=== PATIENT | female | born 1980 | race Caucasian/White ===

== ENCOUNTER 2021-06-08 01:20 | Emergency (ER) | payer OTHER ==
[~2021-06-08] VITALS: Ht 167.6 cm; Wt 81.6 kg
--- NOTE | 2021-06-08 01:25 | NUR ---
PT DIANA ALS. TAKEN TO BED 5
[2021-06-08 01:30] VITALS: BP 136/87
--- NOTE | 2021-06-08 01:30 | NUR ---
Dr. Higgins examining patient.
[2021-06-08] MEDS ORDERED: OLANZapine 5 MG ODT SL ONE (01:35)
--- NOTE | 2021-06-08 01:35 | NUR ---
PT REFUSING GOWN AND EKG. PT STATES "I JUST WANT TO LEAVE." DR. CRAIG AND BEDSIDE DISCUSSING RISK AND BENEFITS OF LEAVING.
--- NOTE | 2021-06-08 01:45 | NUR ---
Patient does not wish to proceed with medical care recommended by DR. CRAIG. Patient given information related to possible complications, up to and including , which could occur as a result of leaving hospital at this time. Patient verbalizes understanding of risks involved leaving against medical advice. Patient has signed AMA form.
== END 2021-06-08 01:45 | disposition left against medical advice (07) ==
LOC: MED 01:20
DX: R07.9 Chest pain, unspecified (principal)
CPT/HCPCS: 99283

== ENCOUNTER 2021-08-21 11:02 | Emergency (ER) | payer OTHER ==
[~2021-08-21] VITALS: Ht 167.6 cm; Wt 86.2 kg
--- NOTE | 2021-08-21 11:02 | NUR ---
PT DIANA AMBULATED TO ER BED 8.
[2021-08-21 11:10] VITALS: BP 127/89
--- NOTE | 2021-08-21 11:16 | NUR ---
DR. FREEMAN AT PT BEDSIDE FOR FURTHER EVALUATION.
--- NOTE | 2021-08-21 11:20 | NUR ---
41 Y/O HOMELESS FEMALE BIBA FROM [facility]IDE [facility] [employer] C/O N/V X2DAYS. PT STATES "I JUST WANT A SANDWICH AND I AM COOL". DENIES FEVER/CHILLS. DENIES PAIN. DENIES SOB. DENIES CHEST PAIN. DENIES PMH NKA
[2021-08-21] MEDS: ONDANSETRON 4 MG ODT PO ONE (11:42)
[2021-08-21] MEDS ORDERED: ONDA-188 SL (11:46)
[2021-08-21 12:08] VITALS: BP 126/84
--- NOTE | 2021-08-21 12:10 | NUR ---
Patient discharged with v/s stable. Written and verbal after care instructions given for nausea/ vomiting and explained. Patient verbalized understanding. Ambulatory with steady gait. All questions addressed prior to discharge. Advised to follow up with PMD.
--- NOTE | 2021-08-21 12:12 | NUR ---
The patient's care was reviewed and supervised by Mel Truong RN.
== END 2021-08-21 12:02 | disposition home or self-care (01) ==
LOC: MED 11:02
DX: R11.2 Nausea with vomiting, unspecified (principal); R10.13 Epigastric pain; Z59.00 Homelessness unspecified
CPT/HCPCS: 99283; Q0162

== ENCOUNTER 2022-02-28 02:35 | Emergency (ER) | payer OTHER ==
[~2022-02-28] VITALS: Ht 170.2 cm; Wt 86.2 kg
[~2022-02-28 02:35] MED LIST: ONDA-188 SL
[2022-02-28 02:37] VITALS: BP 141/89
--- NOTE | 2022-02-28 02:37 | NUR ---
PT OFFLOADED TO LOBBY.
--- NOTE | 2022-02-28 04:30 | NUR ---
PT BIBA BLS ER BED 11
--- NOTE | 2022-02-28 04:58 | NUR ---
Patient given food and fluids. Patient able to eat and drink fluids well. Patient resting comfortably in bed, no c/o pain or s/s of distress.
[2022-02-28 05:45] VITALS: BP 121/82
--- NOTE | 2022-02-28 06:08 | NUR ---
Patient discharged with v/s stable. Written and verbal after care instructions given and explained. Patient verbalized understanding. Ambulatory with steady gait. All questions addressed prior to discharge. Advised to follow up with PMD.
== END 2022-02-28 05:45 | disposition home or self-care (01) ==
LOC: MED 02:35
DX: R06.02 Shortness of breath (principal); F17.200 Nicotine dependence, unspecified, uncomplicated; Z72.820 Sleep deprivation; Z59.00 Homelessness unspecified; Z79.899 Other long term (current) drug therapy
CPT/HCPCS: 71045; 93005; 99283

== ENCOUNTER 2022-05-12 00:45 | Emergency (ER) | payer OTHER ==
[~2022-05-12] VITALS: Ht 167.6 cm; Wt 86.2 kg
[2022-05-12 00:48] VITALS: BP 126/78
--- NOTE | 2022-05-12 00:49 | NUR ---
PT OFFLOADED TO LOBBY. O2 SAT 97%. RR EVEN AND UNLABORED. DOESNT APPEAR TO BE IN DISTRESS AT THIS TIME.
--- NOTE | 2022-05-12 03:00 | NUR ---
Patient ambulated with strong gait to Chair B. Patient on monitor, A/Ox4, chest rise and fall symmetrical, no s/s of distress.
--- NOTE | 2022-05-12 03:53 | NUR ---
PT AMBULATED WITH STRONG GAIT TO ER BED 03.
--- NOTE | 2022-05-12 03:54 | NUR ---
Patient ambulated with strong gait to room 3. Patient on monitor, A/Ox4, chest rise and fall symmetrical, no s/s of distress.
--- NOTE | 2022-05-12 04:30 | NUR ---
PT ALERT AND ABLE TO MAKE NEEDS KNOWN. HOMELESS. PT C/O SOB. DENIES CHEST PAIN. AMBULATORY. NO OTHER COMPPLAINTS AT THIS TIME.
== END 2022-05-12 05:25 | disposition home or self-care (01) ==
LOC: MED 00:45
DX: R06.02 Shortness of breath (principal); Z79.899 Other long term (current) drug therapy
CPT/HCPCS: 71045; 81025; 93005; 99283; Q0092

== ENCOUNTER 2022-05-15 23:24 | Emergency (ER) | payer OTHER ==
[~2022-05-15] VITALS: Ht 167.6 cm; Wt 86.2 kg
[2022-05-15 23:27] VITALS: BP 148/66
--- NOTE | 2022-05-15 23:30 | NUR ---
PT OFF-LOADED TO LOBBY.
--- NOTE | 2022-05-16 02:27 | NUR ---
PT TO CHAIR B
--- NOTE | 2022-05-16 02:40 | NUR ---
DR. CORNELL WITH PT FOR EXAM
[2022-05-16] MEDS ORDERED: KETOROLAC 60 MG/2 ML VIAL IM ONE (02:45)
--- NOTE | 2022-05-16 02:58 | NUR ---
PT REFUSED MEDICATION, TORADOL DRAWN UP AND WASTERED.PT STATED "I CHANGED MY MIND I DONT WANT IT".
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
[2022-05-16] MEDS ORDERED: IBUP-2213 PO (03:07)
[2022-05-16 03:10] VITALS: BP 148/66
--- NOTE | 2022-05-16 03:10 | NUR ---
LEFT WITHOUT PAPER WORK Patient discharged with v/s stable. Written and verbal after care instructions given and explained. Patient alert, oriented and verbalized understanding of instructions. Ambulatory with steady gait. All questions addressed prior to discharge. ID band removed. Patient advised to follow up with PMD. Rx of IBUPROFEN given. Patient educated on indication of medication including possible reaction and side effects. Opportunity to ask questions provided and answered.
== END 2022-05-16 03:10 | disposition home or self-care (01) ==
LOC: MED 23:24
DX: R07.89 Other chest pain (principal)
CPT/HCPCS: 93005; 99283; J1885

== ENCOUNTER 2022-07-08 00:25 | Emergency (ER) | payer OTHER ==
[~2022-07-08] VITALS: Ht 162.6 cm; Wt 81.6 kg
[~2022-07-08 00:25] MED LIST changes: +IBUP-2213 PO
[2022-07-08 00:29] VITALS: BP 138/76
--- NOTE | 2022-07-08 00:30 | NUR ---
PT TO LOBBY
--- NOTE | 2022-07-08 00:32 | NUR ---
pt DIANA coming from the streets states she is homeless. [facility] run #[id number]. Pt c/o chest pain 5/10 non radiating but is constant that started an hour ago. Pt states she also feels faint. Deneis n/v. No sob. VSS. A&Ox4. Ambulatory with steady gait. Pupils PERRLA. Pt not vaccinated for covid. Has hx of bipolar. NKA. Pt waiting in lobby until a bed becomes available.
--- NOTE | 2022-07-08 00:52 | NUR ---
PT CALLED BY LAB WITH NO ANSWER IN LOBBY AND OUTSIDE. DR. RIVERA MADE AWARE
--- NOTE | 2022-07-08 01:07 | NUR ---
PT CALLED BY RADIOLOGY FOR XR WITH NO ANSWER IN LOBBY OR OUTSIDE. PT LWBS
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
[2022-07-08 01:58] LABS: BASOPHILS # (AUTO) 0.1 K/uL (0.00-0.22); BASOPHILS % (AUTO) 0.8 % (0.0-2.0); EOSINOPHILS # (AUTO) 0.2 K/uL (0-0.4); EOSINOPHILS % (AUTO) 2.8 % (0.0-4.0); HEMATOCRIT 37.6 % (36-48); HEMOGLOBIN 12.6 g/dL (12.0-16.0); LYMPHOCYTES # (AUTO) 3.1 K/uL (2.5-16.5); LYMPHOCYTES % (AUTO) 38.7 % (20.5-51.1); MEAN CORPUSCULAR HEMOGLOBIN 30 pg (27-31); MEAN CORPUSCULAR HGB CONC 33 g/dL (33-37); MEAN CORPUSCULAR VOLUME 90.3 fL (80-94); MONOCYTES # (AUTO) 0.7 K/uL (0.8-1.0); MONOCYTES % (AUTO) 8.8 % (1.7-9.3); NEUTROPHILS # (AUTO) 3.9 K/uL (1.8-7.7); NEUTROPHILS % (AUTO) 48.9 % (42.2-75.2); PLATELET COUNT (AUTO) 327 K/uL (140-450); RED BLOOD CELL COUNT(AUTO) 4.17 MIL/uL (4.20-5.40); RED CELL DISTRIBUTION WIDTH 13.2 % (11.6-13.7); WHITE BLOOD COUNT (AUTO) 7.9 K/uL (4.8-10.8)
[2022-07-08 02:06] LABS: ANION GAP 7.2 (8-16); CARBON DIOXIDE 31.2 mmol/L (21-32); CHLORIDE 100 mmol/L (98-107); CREATININE 0.7 mg/dL (0.6-1.3); GFR ARICAN-AMERICAN 117 mL/min (>90); GLUCOSE 88 mg/dL (74-106); POTASSIUM 3.4 mmol/L (3.5-5.1); SODIUM SERUM 135 mmol/L (136-145); UREA NITROGEN, BLOOD 18 mg/dL (7-18)
[2022-07-08 02:15] LABS: ALBUMIN 3.8 g/dL (3.4-5.0); ASPARTATE AMINOTRANSFERASE 38 U/L (15-37); TOTAL BILIRUBIN 0.5 mg/dL (0.0-1.0)
[2022-07-08] MEDS ORDERED: ACETAMINOPHEN EXTRA STRENGTH 500 MG TAB PO ONE (02:30)
--- NOTE | 2022-07-08 04:04 | NUR ---
TO BED 3 FROM LOBBY
--- NOTE | 2022-07-08 04:20 | NUR ---
no urine collected. MD aware and set to discharge pt.
[2022-07-08] MEDS ORDERED: ACETAMINOPHEN EXTRA STRENGTH 500 MG TAB ONE (04:25)
[2022-07-08 04:29] VITALS: BP 132/92
--- NOTE | 2022-07-08 04:31 | NUR ---
42 Y/O F presents with sharp chest pain 5/10. pt denies NVD. Skin intact and A&Ox4. PMH- Bipolar and hypertension NKA
--- NOTE | 2022-07-08 04:39 | NUR ---
ER at bedside
--- NOTE | 2022-07-08 05:14 | NUR ---
The patient's care was reviewed and supervised by Yolanda Gonzalez RN.
== END 2022-07-08 05:00 | disposition home or self-care (01) ==
LOC: MED 00:25
DX: R07.2 Precordial pain (principal); Z79.899 Other long term (current) drug therapy
CPT/HCPCS: 36415; 71045; 80053; 84484; 85025; 93005; 99285; Q0092

== ENCOUNTER 2022-09-04 22:25 | Emergency (ER) | payer OTHER ==
[~2022-09-04] VITALS: Ht 167.6 cm; Wt 73.5 kg
[2022-09-04 22:27] VITALS: BP 123/82
[2022-09-04] MEDS ORDERED: LORazepam 1 MG TAB PO ONE (22:30)
== END 2022-09-04 23:12 | disposition left against medical advice (07) ==
LOC: MED 22:25
DX: R07.9 Chest pain, unspecified (principal); R06.02 Shortness of breath; F15.90 Other stimulant use, unspecified, uncomplicated; Z79.899 Other long term (current) drug therapy
CPT/HCPCS: 93005; 99283

== ENCOUNTER 2022-09-29 01:05 | Emergency (ER) | payer OTHER ==
[~2022-09-29] VITALS: Ht 167.6 cm; Wt 86.2 kg
[2022-09-29 01:10] VITALS: BP 139/94
--- NOTE | 2022-09-29 01:10 | NUR ---
PT OFFLOADED TO BED 01 BLS
--- NOTE | 2022-09-29 01:16 | NUR ---
42 YO F BIBA FROM OUTSIDE OF [facility] WITH C/C OF SOB [id number] S/P METH USE. REPORTS GENERALIZED BODY PAIN 5/10. STATES SHE HAS A COUGH. DENIES FEVER, N/V/D. DENIES HX, RX AND ALLERIGES
--- NOTE | 2022-09-29 01:16 | NUR ---
RAD AT BEDSIDE
--- NOTE | 2022-09-29 01:30 | NUR ---
42 YO F BIBA FROM OUTSIDE OF [facility] WITH C/C OF SOB [id number] S/P METH USE. REPORTS GENERALIZED BODY PAIN 5/10. STATES SHE HAS A COUGH. DENIES FEVER, N/V/D. DENIES HX, RX AND ALLERIGES
[2022-09-29 01:39] LABS: BASOPHILS # (AUTO) 0.1 K/uL (0.00-0.22); BASOPHILS % (AUTO) 0.7 % (0.0-2.0); EOSINOPHILS # (AUTO) 0.2 K/uL (0-0.4); EOSINOPHILS % (AUTO) 2.5 % (0.0-4.0); HEMATOCRIT 36.9 % (36-48); HEMOGLOBIN 12.1 g/dL (12.0-16.0); LYMPHOCYTES # (AUTO) 2.1 K/uL (2.5-16.5); LYMPHOCYTES % (AUTO) 28.8 % (20.5-51.1); MEAN CORPUSCULAR HEMOGLOBIN 29 pg (27-31); MEAN CORPUSCULAR HGB CONC 33 g/dL (33-37); MEAN CORPUSCULAR VOLUME 89.2 fL (80-94); MONOCYTES # (AUTO) 0.6 K/uL (0.8-1.0); MONOCYTES % (AUTO) 7.6 % (1.7-9.3); NEUTROPHILS # (AUTO) 4.5 K/uL (1.8-7.7); NEUTROPHILS % (AUTO) 60.4 % (42.2-75.2); PLATELET COUNT (AUTO) 268 K/uL (140-450); RED BLOOD CELL COUNT(AUTO) 4.14 MIL/uL (4.20-5.40); RED CELL DISTRIBUTION WIDTH 12.6 % (11.6-13.7); WHITE BLOOD COUNT (AUTO) 7.4 K/uL (4.8-10.8)
[2022-09-29 01:53] LABS: ALBUMIN 3.3 g/dL (3.4-5.0); ANION GAP 8.2 (8-16); CREATININE 0.8 mg/dL (0.6-1.3); POTASSIUM 3.2 mmol/L (3.5-5.1); TOTAL BILIRUBIN 0.6 mg/dL (0.0-1.0)
[2022-09-29 06:25] VITALS: BP 139/94
== END 2022-09-29 06:25 | disposition home or self-care (01) ==
LOC: MED 01:05
DX: R06.02 Shortness of breath (principal); Z79.899 Other long term (current) drug therapy; Z79.1 Long term (current) use of non-steroidal anti-inflammatories (NSAID)
CPT/HCPCS: 36415; 71045; 80053; 83880; 84484; 85025; 99284; Q0092

== ENCOUNTER 2022-09-29 22:41 | Emergency (ER) | payer OTHER ==
[~2022-09-29] VITALS: Ht 167.6 cm; Wt 86.6 kg
[2022-09-29 22:41] VITALS: BP 128/80
--- NOTE | 2022-09-29 22:42 | NUR ---
EKG OBTAINED. PT TO LOBBY
[2022-09-29 23:46] LABS: BASOPHILS # (AUTO) 0.1 K/uL (0.00-0.22); BASOPHILS % (AUTO) 0.9 % (0.0-2.0); EOSINOPHILS # (AUTO) 0.2 K/uL (0-0.4); EOSINOPHILS % (AUTO) 2.5 % (0.0-4.0); HEMOGLOBIN 12.8 g/dL (12.0-16.0); LYMPHOCYTES # (AUTO) 2.2 K/uL (2.5-16.5); LYMPHOCYTES % (AUTO) 37.3 % (20.5-51.1); MEAN CORPUSCULAR HEMOGLOBIN 29 pg (27-31); MEAN CORPUSCULAR HGB CONC 33 g/dL (33-37); MEAN CORPUSCULAR VOLUME 88.9 fL (80-94); MONOCYTES # (AUTO) 0.4 K/uL (0.8-1.0); MONOCYTES % (AUTO) 7.2 % (1.7-9.3); NEUTROPHILS # (AUTO) 3.1 K/uL (1.8-7.7); NEUTROPHILS % (AUTO) 52.1 % (42.2-75.2); PLATELET COUNT (AUTO) 303 K/uL (140-450); RED BLOOD CELL COUNT(AUTO) 4.38 MIL/uL (4.20-5.40); RED CELL DISTRIBUTION WIDTH 13.2 % (11.6-13.7)
[2022-09-30 00:34] LABS: ALBUMIN 3.5 g/dL (3.4-5.0); CARBON DIOXIDE 29.4 mmol/L (21-32); CREATININE 0.8 mg/dL (0.6-1.3); POTASSIUM 3.4 mmol/L (3.5-5.1); TOTAL BILIRUBIN 0.6 mg/dL (0.0-1.0)
[2022-09-30] MEDS ORDERED: ACETAMINOPHEN EXTRA STRENGTH 500 MG TAB PO ONE (02:20)
[2022-09-30 02:31] VITALS: BP 149/111
--- NOTE | 2022-09-30 02:31 | NUR ---
Patient discharged with v/s stable. Written and verbal after care instructions given and explained. Patient alert, oriented and verbalized understanding of instructions. [g ED.DCMODE] with [g ED.D/CMODE]. All questions addressed prior to discharge. ID band removed. Patient advised to follow up with PMD. Rx of [] given. Patient educated on indication of medication including possible reaction and side effects. Opportunity to ask questions provided and answered.
== END 2022-09-30 02:30 | disposition home or self-care (01) ==
LOC: MED 22:41
DX: R07.9 Chest pain, unspecified (principal); F15.10 Other stimulant abuse, uncomplicated; Z79.899 Other long term (current) drug therapy
CPT/HCPCS: 36415; 71045; 80053; 84484; 85025; 93005; 99285

== ENCOUNTER 2022-10-13 21:50 | Emergency (ER) | payer OTHER ==
[~2022-10-13] VITALS: Ht 165.1 cm; Wt 74.8 kg
[2022-10-13 21:54] VITALS: BP 142/78
--- NOTE | 2022-10-13 22:54 | NUR ---
PT TO CHC
--- NOTE | 2022-10-13 23:17 | NUR ---
pt to XR
[2022-10-13 23:53] VITALS: BP 142/78
== END 2022-10-13 23:53 | disposition home or self-care (01) ==
LOC: MED 21:50
DX: R07.89 Other chest pain (principal); F15.10 Other stimulant abuse, uncomplicated; Z71.6 Tobacco abuse counseling; F17.200 Nicotine dependence, unspecified, uncomplicated; Z79.899 Other long term (current) drug therapy; Z79.1 Long term (current) use of non-steroidal anti-inflammatories (NSAID)
CPT/HCPCS: 71045; 93005; 99283

== ENCOUNTER 2022-10-14 02:14 | Emergency (ER) | payer OTHER ==
[~2022-10-14] VITALS: Ht 165.1 cm; Wt 74.8 kg
[2022-10-14 02:22] VITALS: BP 132/86
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
--- NOTE | 2022-10-14 04:04 | NUR ---
[place] [employer] AT CHAIR SIDE
[2022-10-14] MEDS ORDERED: LORazepam 1 MG TAB PO ONE (04:10)
--- NOTE | 2022-10-14 04:11 | NUR ---
PT STATED SHE WAS ANXIOUS AND SUICIDAL, PT STATED "IF I CAN LAY DOWN TO REST AND GET SOMETHING FOR ANXIETY MAYBE I WONT BE SUICIDAL ANYMORE". YI CLARKE REMAINS AT CHAIR SIDE
--- NOTE | 2022-10-14 04:19 | NUR ---
PT TAKEN TO BED 12. MEDICATED PER ORDERS AND GIVEN FOOD. [place] [employer] AT BEDSIDE.
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
--- NOTE | 2022-10-14 04:37 | NUR ---
PT GIVEN [place]HAICH PER REQUEST
[2022-10-14 05:23] VITALS: BP 128/72
--- NOTE | 2022-10-14 06:05 | NUR ---
PT APPEARS TO BE RESTING WITH EQUAL RISE AND FALL OF CHEST WALL. OPENS EYES TO TOUCH. ALL NEEDS MET AT THIS TIME. BED LOCKED IN LOWEST POSITION, SIDE RAILS X2.
== END 2022-10-14 07:58 | disposition home or self-care (01) ==
LOC: MED 02:14
DX: F41.9 Anxiety disorder, unspecified (principal); Z79.899 Other long term (current) drug therapy; Z79.1 Long term (current) use of non-steroidal anti-inflammatories (NSAID)
CPT/HCPCS: 99283

== ENCOUNTER 2022-10-29 00:45 | Emergency (ER) | payer OTHER ==
[~2022-10-29] VITALS: Ht 167.6 cm; Wt 81.6 kg
[2022-10-29 00:58] VITALS: BP 130/80
--- NOTE | 2022-10-29 01:02 | NUR ---
pt to lobby
[2022-10-29 05:03] VITALS: BP 130/80
--- NOTE | 2022-10-29 05:03 | NUR ---
PT LEFT WITHOUT D/C PAPER WORK.
== END 2022-10-29 05:03 | disposition home or self-care (01) ==
LOC: MED 00:45
DX: R07.89 Other chest pain (principal); F17.210 Nicotine dependence, cigarettes, uncomplicated; F12.90 Cannabis use, unspecified, uncomplicated; Z72.89 Other problems related to lifestyle; Z79.899 Other long term (current) drug therapy
CPT/HCPCS: 93005; 99283

== ENCOUNTER 2023-07-02 23:07 | Emergency (ER) | payer SELFPAY | END 2023-07-02 23:38 | disposition left against medical advice (07) | LOC: MED 23:07 | DX: R06.02 Shortness of breath (principal); Z53.21 Procedure and treatment not carried out due to patient leaving prior to being seen by health care provider ==

== ENCOUNTER 2023-09-05 04:15 | Emergency (ER) | payer SELFPAY ==
[~2023-09-05] VITALS: Ht 167.6 cm; Wt 86.2 kg
[2023-09-05 04:23] VITALS: BP 138/70; PULSE 80; RESP 16; TEMP 98.4; O2SAT 99
[2023-09-05 05:38] LABS: BASOPHILS # (AUTO) 0.1 K/uL (0.00-0.22); BASOPHILS % (AUTO) 0.9 % (0.0-2.0); EOSINOPHILS # (AUTO) 0.3 K/uL (0-0.4); EOSINOPHILS % (AUTO) 5.4 % (0.0-4.0); HEMATOCRIT 35.7 % (36-48); HEMOGLOBIN 11.6 g/dL (12.0-16.0); LYMPHOCYTES # (AUTO) 1.7 K/uL (2.5-16.5); LYMPHOCYTES % (AUTO) 28.1 % (20.5-51.1); MEAN CORPUSCULAR HEMOGLOBIN 25 pg (27-31); MEAN CORPUSCULAR HGB CONC 33 g/dL (33-37); MEAN CORPUSCULAR VOLUME 76.5 fL (80-94); MONOCYTES # (AUTO) 0.5 K/uL (0.8-1.0); MONOCYTES % (AUTO) 7.5 % (1.7-9.3); NEUTROPHILS # (AUTO) 3.5 K/uL (1.8-7.7); NEUTROPHILS % (AUTO) 58.1 % (42.2-75.2); PLATELET COUNT (AUTO) 326 K/uL (140-450); RED BLOOD CELL COUNT(AUTO) 4.67 MIL/uL (4.20-5.40)
[2023-09-05 05:54] LABS: ALBUMIN 3.1 g/dL (3.4-5.0); ANION GAP 10.3 (8-16); CALCIUM 8.8 mg/dL (8.5-10.1); CARBON DIOXIDE 27.7 mmol/L (21-32); CREATININE 0.7 mg/dL (0.6-1.3); TOTAL BILIRUBIN 0.5 mg/dL (0.0-1.0); TOTAL PROTEIN, SERUM 9.2 g/dL (6.4-8.2)
[2023-09-05] MEDS ORDERED: KETOROLAC 15 MG/ML VIAL ONE (06:23)
[2023-09-05] MEDS: ASPIRIN 81 MG TAB.CHEW PO ONE (06:26)
[2023-09-05] MEDS: KETOROLAC 30 MG/ML VIAL IVP ONE (06:39)
[2023-09-05 06:48] VITALS: BP 136/74; PULSE 73; RESP 15; O2SAT 98
== END 2023-09-05 06:55 | disposition home or self-care (01) ==
LOC: MED 04:15
DX: R07.9 Chest pain, unspecified (principal); F15.10 Other stimulant abuse, uncomplicated; Z79.899 Other long term (current) drug therapy
CPT/HCPCS: 36415; 71045; 80053; 83880; 84484; 85025; 93005; 99285; J1885

== ENCOUNTER 2024-04-02 01:40 | Emergency (ER) | payer SELFPAY ==
[~2024-04-02] VITALS: Ht 167.6 cm; Wt 86.2 kg
[2024-04-02 01:54] VITALS: BP 131/91; PULSE 78; RESP 18; TEMP 98.2
== END 2024-04-02 03:44 | disposition home or self-care (01) ==
LOC: MED 01:40
DX: R07.89 Other chest pain (principal); F15.90 Other stimulant use, unspecified, uncomplicated; Z71.6 Tobacco abuse counseling; Z79.899 Other long term (current) drug therapy
CPT/HCPCS: 93005; 99283